=== PATIENT | female | born 1955 | race Caucasian/White ===

== ENCOUNTER 2020-09-21 12:34 | Outpatient (REF) | payer MEDICARE, SELFPAY ==
[2020-09-21 14:36] LABS: MANUAL DIFF FLAG NO
[2020-09-21 14:40] LABS: Basophils Absolute Auto 0.1 X10*3/uL (0.0-0.2); Basophils Percent Auto 0.7 % (0-2); Eosinophils Absolute Auto 0.2 X10*3/uL (0.0-0.4); Eosinophils Percent Auto 2.2 % (0-4); Hematocrit 40.9 % (37-47); Hemoglobin 12.9 g/dl (12.0-16.0); Imm Gran Abs Auto 0.07 X10*3/uL (0.00-0.03); Imm Gran Pct Auto 0.8 % (0.0-0.4); Lymphocytes Absolute Auto 1.1 X10*3/uL (1.2-4.9); Lymphocytes Percent Auto 12.4 % (20-40); Mean Corpuscular HGB Conc 31.5 g/dl (31.0-35.0); Mean Corpuscular Hemoglobin 28.4 pg (27.0-33.0); Mean Corpuscular Volume 89.9 fL (80-98); Monocytes Absolute Auto 0.9 X10*3/uL (0.1-1.2); Monocytes Percent Auto 10.4 % (2-11); Neutrophils Absolute Auto 6.6 X10*3/uL (2.0-8.3); Neutrophils Percent Auto 73.5 % (45-73); Platelet Count 273 X10*3/uL (160-400); Red Blood Count 4.55 X10*6/uL (4.20-5.50); Red Cell Distribution Width 13.7 % (11.0-16.0)
== END 2020-09-21 12:35 | disposition home or self-care (01) ==
LOC: HO.10HDL 12:34
DX: L03.113 Cellulitis of right upper limb (principal)
CPT/HCPCS: 36415; 85025

== ENCOUNTER → 2020-09-23 13:39 | Outpatient (BNVA) | payer MEDICARE, SELFPAY | PROVIDERS: Visit Provider Surgery | DX: L72.0 Epidermal cyst (principal); L02.413 Cutaneous abscess of right upper limb | CPT/HCPCS: 99212 ==

== ENCOUNTER → 2020-09-30 11:35 | Outpatient (BNVA) | payer MEDICARE, SELFPAY | PROVIDERS: Visit Provider Surgery | DX: M71.311 Other bursal cyst, right shoulder (principal) | CPT/HCPCS: 10061; 99212 ==

== ENCOUNTER → 2020-10-13 10:37 | Outpatient (BNVA) | payer MEDICARE, SELFPAY | PROVIDERS: Visit Provider Surgery | DX: Z48.817 Encounter for surgical aftercare following surgery on the skin and subcutaneous tissue (principal) | CPT/HCPCS: 99212 ==

== ENCOUNTER 2020-11-22 14:41 | Outpatient (REF) | payer MEDICARE, SELFPAY | END 2020-11-22 14:42 | disposition home or self-care (01) | LOC: HO.LNP 14:41 | PROVIDERS: Visit Provider Surgery | DX: T14.8XXA Other injury of unspecified body region, initial encounter (principal) | CPT/HCPCS: 87071; 87205; 99212 ==

== ENCOUNTER → 2020-12-02 13:18 | Outpatient (BNVA) | payer MEDICARE, SELFPAY | PROVIDERS: PCP Internal Medicine; Visit Provider Surgery | DX: M25.419 Effusion, unspecified shoulder (principal); R23.8 Other skin changes | CPT/HCPCS: 99212 ==

== ENCOUNTER 2020-12-03 10:08 | Outpatient (REF) | payer MEDICARE, SELFPAY ==
[2020-12-03 14:20] LABS: Blood Urea Nitrogen 23 mg/dL (9-16); Estimated Glomerular Filt Rate 57
== END 2020-12-03 10:09 | disposition home or self-care (01) ==
LOC: HO.10HDL 10:08
PROVIDERS: Absent Provider Internal Medicine; Visit Provider Surgery
DX: M25.419 Effusion, unspecified shoulder (principal); R23.8 Other skin changes
CPT/HCPCS: 36415; 82565; 84520

== ENCOUNTER 2021-01-11 13:18 | Emergency (ER) | payer MEDICARE, SELFPAY ==
[2021-01-11 13:44] VITALS: BP 135/58; PULSE 68; RESP 16; TEMP 37.1; O2SAT 96; BMI 36.3
--- NOTE | 2021-01-11 14:00 | ED_ITS ---
HPI - General Adult General Chief complaint: Dizziness Stated complaint: ANXIETY,COVID LIKE SYMPTOMS Time Seen by Provider: 01/11/21 14:00 Source: patient Mode of arrival: ambulatory Limitations: no limitations History of Present Illness HPI narrative: tested positive for COVID and she had a fever for one day. Patient not feeling right for 5 days. Patient had a cough for one day. Patient was lightheaded and stressed Onset (ago): day(s) Severity: mild Related Data Home Medications Medication Instructions Recorded Confirmed cephalexin 750 mg capsule mg PO 09/23/20 hydrochlorothiazide 12.5 mg capsule 12.5 mg PO DAILY 09/23/20 lisinopril 5 mg tablet 5 mg PO DAILY 09/23/20 meloxicam 15 mg tablet 15 mg PO DAILY 09/23/20 simvastatin 40 mg tablet 40 mg PO DAILY 09/23/20 Allergies Allergy/AdvReac Type Severity Reaction Status Date / Time aspirin Allergy Unknown Unknown Verified 09/16/20 11:44 Review of Systems Constitutional: Constitutional: Reports no additional constitutional complaints Eyes: Eyes: Reports no additional eye complaints ENT: Denies dizziness Cardiovascular: Cardiovascular: Reports no additional cardiovascular complaints Respiratory: Respiratory: Reports as per HPI Gastrointestinal: Gastrointestinal: Reports no additional gastrointestinal complaints Genitourinary: Genitourinary: Reports no additional female genitourinary complaints Musculoskeletal: Musculoskeletal: Reports no additional musculoskeletal complaints Integumentary/Breasts: Skin/Breast: Denies rash Neurologic: Reports system reviewed and no additional complaints, except as documented, Denies dizziness and Denies Sensory deficit (Neuro) Psychiatric: Psychiatric: Denies anxiety [facility] Past Medical History Medical History IBS (irritable bowel syndrome) Infected cyst of right shoulder Morbid obesity Osteoarthritis Redness and swelling of shoulder Wound drainage Surgical History History of breast biopsy History of dilation and curettage History of total abdominal hysterectomy and bilateral salpingo-oophorectomy Family History Family History Father Lymphoma Mother Colorectal cancer Sister No problems noted. Son No problems noted. Son No problems noted. Social History Social History Alcohol intake: never Smoking Status: Never smoker Smoked in Last 30 Days: No Use of substances other than those prescribed or required for medical reasons: No Advance Directives: No Advance Directives Information Provided: No Physical Exam Vital Signs: Vital Signs: Last Vital Signs Temp 98.7 F 01/11/21 13:44 Pulse 68 01/11/21 13:44 Resp 16 01/11/21 13:44 BP 135/58 L 01/11/21 13:44 Pulse Ox 96 01/11/21 13:44 Body Mass Index 36.3 Const: General: healthy appearing Nutritional Appearance: average body habitus Orientation/consciousness: oriented to person and patient oriented x3 Limitations: no limitations HENMT: Head: Yes normal to inspection Ears: external ears normal General nose exam: Normal external nose present Mouth: Normal oral and palatal mucosa present and oropharynx normal Throat: Yes posterior oropharynx normal Eyes: General: appearance normal, both eyes and all related structures Neck: Other: supple Neck: Yes normal visual inspection Chest: Chest palpation & inspection: normal inspection of the chest Resp: Auscultation: clear to auscultation bilaterally Cardio: Jugular venous distension: no JVD Rate: regular rate Rhythm: regular rhythm Heart sounds: S1 normal heart sound present and S2 normal heart sound present GI: Inspection: Yes normal to inspection Palpation (GI): Soft to palpation, nontender and No hepatosplenomegaly present Auscultation: normal bowel sounds : General: Yes no CVA tenderness Back/Spine/Pelvis: Back: no CVA tenderness Skin: General skin exam: no rashes or lesions noted Neuro: General: oriented to person and patient oriented x3 Cranial nerves: Yes CN's II-XII intact bilaterally Motor exam (neuro): 5/5 motor strength present throughout Sensory Exam: No Sensory deficit (Neuro) Extrem: General: Yes normal to inspection Psych: Appearance: grossly normal Course Course Course Narrative: Patient not ill appearing will dc home Medical Decision Making Lab Data Labs: Lab Results 01/11/21 Range/Units 14:31 Coronavirus (PCR) POSITIVE A (Negative) Influenza Type A (PCR) NEGATIVE (Negative) Influenza Type B (PCR) NEGATIVE (Negative) RSV RNA Qual (PCR) NEGATIVE (Negative) Discharge Plan Discharge Clinical Impression: COVID-19 Patient Disposition: Home, Self-Care Instructions: COVID-19 (Coronavirus Disease 2019) (ED) Prescriptions: No Action simvastatin 40 mg tablet 40 mg PO DAILY RF: 0 lisinopril 5 mg tablet 5 mg PO DAILY RF: 0 hydrochlorothiazide 12.5 mg capsule 12.5 mg PO DAILY RF: 0 meloxicam 15 mg tablet 15 mg PO DAILY RF: 0 cephalexin 750 mg capsule PO RF: 0 Referrals: Ady Melgar MD [Primary Care Provider] - 2 days
[2021-01-11 15:16] LABS: Influenza A PCR NEGATIVE (Negative); Influenza B PCR NEGATIVE (Negative); Resp Syncy Virus RNA Qual PCR NEGATIVE (Negative); SARS COV2 PCR INHOUSE POSITIVE (Negative)
== END 2021-01-11 16:13 | disposition home or self-care (01) ==
PROVIDERS: Emergency Provider Emergency Medicine; PCP Internal Medicine
DX: U07.1 COVID-19 (principal)
CPT/HCPCS: 0241U; 36415; 99283; 99284